=== PATIENT | male | born 1950 | race Caucasian/White ===

== ENCOUNTER 2021-10-31 08:15 | Outpatient (CLI) | payer MEDICARE, OTHER, SELFPAY ==
[2021-10-31 14:27] LABS: Chloride* 104 mmol/L (96-114); Potassium* 4.8 mmol/L (3.6-5.1); Sodium* 137 mmol/L (135-149)
[2021-10-31 14:29] LABS: Cholesterol* 235 mg/dL (90-199)
[2021-10-31 14:30] LABS: Blood Urea Nitrogen* 17 mg/dL (7-30); Carbon Dioxide* 26 mmol/L (20-32); Estimated Glomerular Filt Rate 81 ml/min; Glucose* 91 mg/dL (60-115); Triglycerides* 66 mg/dL (40-149)
[2021-10-31 14:31] LABS: Calcium* 8.9 mg/dL (8.4-10.6); HDL Cholesterol* 61 mg/dL (>=40); LDL Cholesterol Calculated 161 mg/dL (<100)
[2021-10-31 14:59] LABS: Thyroid Stimulating Hormone* 0.075 uIU/mL (0.270-4.20)
[2021-10-31 15:00] LABS: PSA Screen* 1.47 ng/mL (0.10-4.00)
== END 2021-10-31 08:16 | disposition home or self-care (01) ==
PROVIDERS: PCP Family Medicine; Visit Provider Family Medicine
DX: I10 Essential (primary) hypertension (principal); R97.20 Elevated prostate specific antigen [PSA]; E78.5 Hyperlipidemia, unspecified; E03.9 Hypothyroidism, unspecified
CPT/HCPCS: 80048; 80061; 84153; 84443

== ENCOUNTER 2022-05-18 09:30 | Outpatient (CLI) | payer MEDICARE, OTHER, SELFPAY | END 2022-05-18 09:31 | disposition home or self-care (01) | LOC: NFLDREF 17:09 | PROVIDERS: PCP Family Medicine; Referring Provider Family Medicine; Visit Provider Family Medicine | DX: E03.9 Hypothyroidism, unspecified (principal) | CPT/HCPCS: 84439; 84443 ==

== ENCOUNTER 2022-07-22 08:04 | Outpatient (CLI) | payer MEDICARE, OTHER, SELFPAY | END 2022-07-22 08:05 | disposition home or self-care (01) | LOC: NFLDREF 07-25 07:41 | PROVIDERS: PCP Family Medicine; Referring Provider Family Medicine; Visit Provider Family Medicine | DX: E78.5 Hyperlipidemia, unspecified (principal); E03.9 Hypothyroidism, unspecified | CPT/HCPCS: 80061; 84443 ==

== ENCOUNTER 2023-07-02 16:12 | Outpatient (CLI) | payer MEDICARE, OTHER, SELFPAY | END 2023-07-02 16:13 | disposition home or self-care (01) | LOC: LKVREF 16:14 | PROVIDERS: PCP Family Medicine; Visit Provider Physician Assistant | DX: R21 Rash and other nonspecific skin eruption (principal) | CPT/HCPCS: 86618 ==

== ENCOUNTER 2023-10-19 08:34 | Outpatient (CLI) | payer MEDICARE, OTHER, SELFPAY | END 2023-10-19 08:35 | disposition home or self-care (01) | LOC: NFLDREF 10-21 04:01 | PROVIDERS: PCP Family Medicine; Referring Provider Family Medicine; Visit Provider Family Medicine | DX: I10 Essential (primary) hypertension (principal); E03.9 Hypothyroidism, unspecified; E78.5 Hyperlipidemia, unspecified; Z12.5 Encounter for screening for malignant neoplasm of prostate | CPT/HCPCS: 80053; 80061; 84443; G0103 ==

== ENCOUNTER 2024-11-21 10:02 | Outpatient (CLI) | payer MEDICARE, OTHER, SELFPAY | END 2024-11-21 10:03 | disposition home or self-care (01) | PROVIDERS: PCP Family Medicine; Visit Provider Family Medicine | DX: Z00.00 Encounter for general adult medical examination without abnormal findings (principal); N40.1 Benign prostatic hyperplasia with lower urinary tract symptoms; E03.9 Hypothyroidism, unspecified; E78.5 Hyperlipidemia, unspecified; I10 Essential (primary) hypertension; R53.83 Other fatigue | CPT/HCPCS: 80053; 80061; 84153; 84443 ==